=== PATIENT | female | born 1950 | race Caucasian/White ===

== ENCOUNTER → 2016-10-02 | Outpatient (CLI) | payer MEDICARE, BC ==
--- NOTE | 2016-10-02 13:07 | MM ---
Reason for exam: screening (asymptomatic). Last mammogram was performed 1 year and 1 month ago. History: Patient is postmenopausal. Family history of breast cancer in maternal grandmother at age 50, breast cancer in paternal aunt at age 55, and breast cancer in 2 other paternal aunts. Benign excisional biopsy of the left breast, 2012. Benign excisional biopsy of the right breast, 2006. Took estrogen for 6 months. Physical Findings: A clinical breast exam by your physician is recommended on an annual basis and results should be correlated with mammographic findings. MG 3D Screening Mammo W/Cad Bilateral CC and MLO view(s) were taken. Prior study comparison: September 14, 2015, bilateral MG 3d diag mammo w/cad MEG. September 08, 2014, bilateral MG diagnostic mammo w CAD MEG. January 17, 2014, bilateral MG diagnostic mammo w CAD MEG. There are scattered fibroglandular densities. Finding: There are typically benign vascular, dystrophic, round calcifications in the left breast. There is no discrete abnormality. ASSESSMENT: Benign, BI-RAD 2 RECOMMENDATION: Routine screening mammogram of both breasts in 1 year.
== END | disposition home or self-care (01) ==
LOC: RADMAMWWP 10:27
PROVIDERS: ATTEND Family Medicine
DX: Z12.31 Encounter for screening mammogram for malignant neoplasm of breast (principal)
CPT/HCPCS: 77063; G0202

== ENCOUNTER → 2017-01-21 | Outpatient (CLI) | payer MEDICARE, BC ==
--- NOTE | 2017-01-21 14:55 | US ---
EXAMINATION TYPE: US venous doppler duplex LE LT DATE OF EXAM: 01/21/2017 2:49 PM COMPARISON: NONE CLINICAL HISTORY: 66-year-old female M79.605 PAIN IN LT LEG, R60.9 EDEMA. Patient states left leg hayes n, h/o DVT 20+ yrs ago SIDE PERFORMED: Left TECHNIQUE: The lower extremity deep venous system is examined utilizing real time linear array sonog joanna with graded compression, doppler sonography and color-flow sonography. FINDINGS: VESSELS IMAGED: External Iliac Vein (EIV) Common Femoral Vein Deep Femoral Vein Greater Saphenous Vein * Femoral Vein Popliteal Vein Small Saphenous Vein * Proximal Calf Veins (* superficial vessels) Left Leg: Negative for DVT Results called to Gretta at Dr's office at time of exam IMPRESSION: No evidence for DVT within the left lower extremity imaged from the groin to the upper calf.
[2017-01-21 15:17] LABS: Basophils # (A) 0.1 k/uL (0-0.2); Basophils % (A) 1 %; CH 28.5; CHCM 33.7; Eosinophils # (A) 0.2 k/uL (0-0.7); Eosinophils % (A) 2 %; HCT 40.3 % (34.0-46.0); HDW 2.43; HGB 13.7 gm/dL (11.4-16.0); Luc % (Auto) 2; Lymphocytes # (A) 3.8 k/uL (1.0-4.8); Lymphocytes % (A) 42 %; MCH 28.9 pg (25.0-35.0); MCHC 34.1 g/dL (31.0-37.0); MCV 84.8 fL (80.0-100.0); Monocytes # (A) 0.5 k/uL (0-1.0); Monocytes % (A) 5 %; Neutrophils # (A) 4.3 k/uL (1.3-7.7); Neutrophils % (A) 48 %; RBC 4.75 m/uL (3.80-5.40); RDW 12.7 % (11.5-15.5); WBC (Perox) 9.06
[2017-01-21 15:37] LABS: ALT 32 U/L (9-52); AST 19 U/L (14-36); Alkaline Phosphatase 75 U/L (38-126); Amylase 56 U/L (30-110); Anion Gap 10 mmol/L; Blood Urea Nitrogen 16 mg/dL (7-17); Calcium 9.5 mg/dL (8.4-10.2); Carbon Dioxide 30 mmol/L (22-30); Chloride 101 mmol/L (98-107); Glucose 86 mg/dL (74-99); Non-African American GFR(MDRD) >60 (>60 ml/min/1.73 sqM); Potassium 3.8 mmol/L (3.5-5.1); Sodium 141 mmol/L (137-145); Total Bilirubin 0.8 mg/dL (0.2-1.3); Total Protein 6.5 g/dL (6.3-8.2)
== END | disposition home or self-care (01) ==
LOC: RADUSWWP 14:27
PROVIDERS: ATTEND Family Medicine
DX: M79.605 Pain in left leg (principal); R60.9 Edema, unspecified; R10.9 Unspecified abdominal pain
CPT/HCPCS: 36415; 80053; 82150; 83690; 84439; 84443; 84481; 85025

== ENCOUNTER → 2017-12-31 | Outpatient (CLI) | payer MEDICARE, BC ==
--- NOTE | 2017-12-31 13:38 | USB ---
Reason for exam: clinical finding. History: Patient is postmenopausal. Family history of breast cancer in maternal grandmother at age 50, breast cancer in paternal aunt at age 55, and breast cancer in 2 other paternal aunts. Benign excisional biopsy of the left breast, 2012. Benign excisional biopsy of the right breast, 2006. Took estrogen for 6 months. Indicated problem(s): pain in the left breast. Physical Findings: Nurse Summary: red area in upper outer quadrant/axilla, nodes along neck with prominent axilla nodes, all soft, movable, difficult breast exam due to pain (nurse ts). US Breast LT Technologist: Suni Strickland, RT (R)(M) Left complete breast ultrasound includes all four quadrants, the retroareolar region and axilla. Finding demonstrates a 5 x 5 x 5mm cystic, benign lesion at 1 o'clock, a 5 x 4 x 5mm cystic, benign lesion at the axilla tail and a 4 x 4 x 4mm cystic, benign lesion at 12 o'clock. Normal nodes seen within axilla. Stable mammographically. These results were verbally communicated with the patient and result sheet given to the patient on 12/31/17. ASSESSMENT: Benign, BI-RAD 2 RECOMMENDATION: Routine screening mammogram of both breasts in 1 year. Manage on a clinical basis with regard to left pain and right skin lesion.
--- NOTE | 2017-12-31 13:39 | MM ---
Reason for exam: clinical finding. Last mammogram was performed 1 year and 3 months ago. History: Patient is postmenopausal. Family history of breast cancer in maternal grandmother at age 50, breast cancer in paternal aunt at age 55, and breast cancer in 2 other paternal aunts. Benign excisional biopsy of the left breast, 2012. Benign excisional biopsy of the right breast, 2006. Took estrogen for 6 months. Indicated problem(s): pain in both breasts. Physical Findings: Nurse Summary: red area in upper outer quadrant/axilla, nodes along neck with prominent axilla nodes, all soft, movable, difficult breast exam due to pain (nurse ts). MG 3D Diag Mammo W/Cad MEG Bilateral CC and MLO view(s) were taken. Prior study comparison: October 02, 2016, bilateral MG 3d screening mammo w/cad. September 14, 2015, bilateral MG 3d diag mammo w/cad MEG. There are scattered fibroglandular densities. There are benign appearing multiple left oil cysts. No suspicious abnormality. These results were verbally communicated with the patient and result sheet given to the patient on 12/31/17. ASSESSMENT: Benign, BI-RAD 2 RECOMMENDATION: Routine screening mammogram of both breasts in 1 year.
== END | disposition home or self-care (01) ==
LOC: RADUSWWP 09:20
PROVIDERS: ATTEND Family Medicine
DX: N64.4 Mastodynia (principal)
CPT/HCPCS: 77066; 76641; G0279; 77062